=== PATIENT | male | born 1980 | race Caucasian/White ===

== ENCOUNTER → 2020-12-25 02:00 | Outpatient (CLI) | payer BC, SELFPAY ==
[2020-12-25 19:39] LABS: SARS-CoV-2 RNA PCR Negative
== END ==
PROVIDERS: PCP Family Medicine; Visit Provider Internal Medicine Critical Care Medicine
DX: R68.89 Other general symptoms and signs (principal); Z20.822 Contact with and (suspected) exposure to COVID-19
CPT/HCPCS: C9803; U0003; U0005

== ENCOUNTER 2020-12-28 09:00 | Outpatient (CLI) | payer BC, SELFPAY ==
--- NOTE | 2021-01-13 10:22 | WPDSLEEPSTUD ---
Sleep Study Date of Study: 12/28/20 Ordering Provider: Felisha Garza NP Interpreting Physician: Joselyn Wilhelm MD Sleep Study Type: CPAP Titration Height: 1.93 m Weight: 111.13 kg Body Mass Index: 29.8 Neck Circumference (inches): 16 [place]: 5 Reason for Sleep Study ApneaLink 05/28/2020 with AHI 8, desaturation to 85%, and 10 minutes spent below 88% Sleep History Randolph Nunez II is a 40 year old man with constant loud snoring and witnessed apneas at home. There is a family history with both parents snoring and a sister using CPAP. He does not awaken from sleep feeling short of breath and does not awaken with heartburn, belching or coughing. He constantly snores and is constantly loud enough that others complain about it. He occasionally has trouble sleep with a cold. He does not wake up gasping for breath at night normally but his has witnessed this on occasion. he does not sweat excessively at night or notices heart pounding or beating irregularly at night. He does not fall asleep involuntarily or while driving. He does not have loss of muscle tone was strong emotion. He does not have daytime difficulties due to excessive sleepiness. He does not feel paralyzed on waking or falling asleep nor does he have vivid dreamlike scenes upon awakening or falling asleep. He does not feel afraid to go to sleep. He does not have nightmares. He occasionally remembers his dreams, occasionally has racing thoughts. He occasionally feels sad, depressed or anxious. He occasionally has muscular tension. He frequently notices parts of his body jerking. He does not kick at night. He rarely has crawling and aching feelings in his legs or any kind of leg pain at night. He rarely grinds his teeth at night and he rarely has morning jaw pain. He occasionally has bothered by pain during the day. He rarely is awakened by pain at night. He occasionally wakes up feeling stiff in the morning. He rarely wakes up with sore or achy muscles. He occasionally wakes up with spine and neck pain. His normal bedtime is between 9:30 and 10:00 p.m. falling asleep within 15 minutes, waking typically 1-2 times at night to roll over and reposition. He wakes the morning at 5:30 a.m.. His weekend schedule is similar although he may stay awake as late as 10:30 p.m. and wakes in the morning by 7:00 a.m.. He is estimating 5-7 hours of sleep nightly. He does not take naps in the afternoon or evening. A short nap 10 or 15 minutes long might be refreshing. Most of the time he feels good in the morning. He feels better in the morning compared other times of day. He occasionally has memory or concentration problems and occasionally has problems with his job related to excessive daytime sleepiness. Habits: Never smoked tobacco. Caffeine 3 mild exam per day. Alcohol 1-2 beers a week at most. No recreational drugs. [facility] Past Medical History Medical History Anxiety and depression Sleep apnea Surgical History Surgical History Hx of cervical spine surgery (~1996) Status post excision of lipoma left lower back Social History Social History Smoking status: Never smoker Second hand tobacco smoke exposure: No Gender identity (if verbalized by the patient): Male Medications Home Medications Medication Instructions Recorded Confirmed Type cholecalciferol (vitamin D3) 1,250 1,250 mcg PO WEEKLY #14 cap 12/07/20 Rx mcg (50,000 unit) capsule Sleep Procedure This test was performed using the [employer] [place] multiple channel system including EOG, EEG, submental EMG, EKG, nasal and oral airflow using thermistors and nasal pressure sensors, chest and abdominal belts for body position data, and pulse oximetry. Video monitoring was also performed. The study was scored using [facility] guidelines. The p
[2021-01-13 10:25] VITALS: BMI 29.8
== END 2020-12-28 09:01 | disposition home or self-care (01) ==
LOC: ANHCSM 09:01
PROVIDERS: PCP Family Medicine; Visit Provider Nurse Practitioner
DX: G47.30 Sleep apnea, unspecified (principal)
CPT/HCPCS: 95811

== ENCOUNTER 2021-01-15 15:56 | Outpatient (CLI) | payer BC, SELFPAY ==
--- NOTE | ~2021-01-15 | XR_ITS ---
EXAMINATION: XR lumbar spine min 4V DATE: 01/15/2021 16:23 INDICATION: Low back pain. TECHNIQUE: 6 views of lumbar spine were obtained. COMPARISON: None. FINDINGS: There is 4 degrees dextrocurvature of lumbar spine. Vertebral body heights and intervertebr al disc heights are normal. There are endplate osteophytes at L2-L3 and L4-L5. There is mild bilatera l facet joint osteoarthritis at L5-S1. IMPRESSION: 1. Mild lumbar spondylosis. Reviewed, dictated and finalized at location A. IMPRESSION: 1. Mild lumbar spondylosis.
== END 2021-01-15 15:57 | disposition home or self-care (01) ==
LOC: ANHIMG 16:00
PROVIDERS: PCP Family Medicine; Visit Provider Nurse Practitioner
DX: M47.896 Other spondylosis, lumbar region (principal)
CPT/HCPCS: 72110

== ENCOUNTER 2023-01-17 09:37 | Outpatient (CLI) | payer BC, SELFPAY ==
[2023-01-17 14:03] LABS: Basophils Percent Auto 0.5 % (0.2-1.2); Eosinophils Percent Auto 0.6 % (0-4.4); Hemoglobin 15.6 g/dL (14.0-18.0); Immature Granulocyte Absolute 0.01 K/mm3 (0.00-0.031); Immature Granulocyte Percent A 0.2 % (0-0.5); Lymphocytes Absolute Auto 1.18 K/mm3 (0.9-3.2); Lymphocytes Percent Auto 18.8 % (18.3-44.2); Mean Corpuscular HGB Conc 33.2 g/dl (32-36); Mean Corpuscular Hemoglobin 30.8 pg (26-34); Mean Corpuscular Volume 92.7 fl (80-100); Mean Platelet Volume 12.3 fl (7.4-10.4); Monocytes Absolute Auto 0.5 K/mm3 (0.1-0.6); Monocytes Percent Auto 8.6 % (2.6-8.5); Neutrophils Absolute Auto 4.5 K/mm3 (1.3-6.7); Neutrophils Percent Auto 71.3 % (45.5-73.1); Platelet Count Result 172 k/mm3 (150-375); Red Blood Count 5.07 M/mm3 (4.6-6.20); Red Cell Distribution Width 12.8 % (11.5-14.5); White Blood Count 6.3 K/mm3 (4.5-10.0)
[2023-01-17 14:09] LABS: Alanine Aminotransferase 26 U/L (6-50); Albumin Level 4.7 g/dL (3.5-5.1); Alkaline Phosphatase 50 U/L (38-126); Anion Gap 3 mmol/L (8-16); Aspartate Amino Transferase 34 U/L (17-59); Bilirubin,Total 0.8 mg/dL (0.2-1.3); Blood Urea Nitrogen 11 mg/dL (9-20); Calcium 9.7 mg/dL (8.4-10.2); Carbon Dioxide 35 mmol/L (22-30); Chloride 103 mmol/L (98-107); Cholesterol 208 mg/dL (0-200); Estimated Glomerular Filt Rate > 60; Glucose 97 mg/dL (65-110); HDL Direct 52 mg/dL; Potassium 4.4 mmol/L (3.4-5.0); Sodium 141 mmol/L (137-145); Triglycerides 81 mg/dL (<150)
[2023-01-17 14:21] LABS: LDL Cholesterol Direct 124 mg/dL
[2023-01-17 14:34] LABS: Vitamin D 25 Hydroxy 50.2 ng/mL
[2023-01-17 14:39] LABS: Prostate Specific Antigen 1.1 ng/mL (< OR = 4.0)
== END 2023-01-17 09:38 | disposition home or self-care (01) ==
LOC: ANHGOSHLAB 09:38
PROVIDERS: PCP Family Medicine; Visit Provider Nurse Practitioner Family
DX: R55 Syncope and collapse (principal); Z12.5 Encounter for screening for malignant neoplasm of prostate; Z13.220 Encounter for screening for lipoid disorders; E55.9 Vitamin D deficiency, unspecified
CPT/HCPCS: 36415; 80053; 80061; 82306; 84153; 84443; 85025; G0103

== ENCOUNTER 2023-02-04 08:08 | Emergency (ER) | payer BC, SELFPAY ==
--- NOTE | 2023-02-04 08:11 | ED.URI ---
HPI - URI/Sore Throat General Chief Complaint: Upper Respiratory Infection Stated Complaint: Sore Throat,Congestion Time Seen by Provider: 02/04/23 08:11 Source: patient Mode of arrival: ambulatory Limitations: no limitations History of Present Illness HPI Narrative: Patient is a 42-year-old male that presents with 2 weeks of congestion and sore throat. Patient states he thought it was allergies was self medicating with over the counter Sudafed and Tylenol but the symptoms continued to worsen. Denies any headache, fever, chills, ear pain, cough, nausea, vomiting, diarrhea. Has not taken any allergy medicine. Related Data Allergies Allergy/AdvReac Type Severity Reaction Status Date / Time Sulfa (Sulfonamide Allergy Mild nausea Verified 02/04/23 08:32 Antibiotics) vomitting sulfamethoxazole Allergy Mild nausea Verified 02/04/23 08:32 vomitting trimethoprim Allergy Mild nausea and Verified 02/04/23 08:32 vomitting Review of Systems Review of Systems: All systems reviewed & are unremarkable except as noted in HPI and below Constitutional: Constitutional: Denies body ache(s), Denies chills, Denies fatigue, Denies fever(s), Denies headache(s), Denies malaise and Denies weakness Eyes: Eyes: Denies blurry vision, Denies itchy eyes and Denies loss of vision ENT: Denies otalgia, Denies headache(s), Reports nasal congestion, Denies sinus pain and Reports sore throat Cardiovascular: Cardiovascular: Denies chest pain, Denies irregular heart rhythm and Denies dyspnea Respiratory: Respiratory: Denies cough and Denies dyspnea Gastrointestinal: Gastrointestinal: Denies abdominal pain, Denies diarrhea, Denies nausea and Denies vomiting Musculoskeletal: Musculoskeletal: Denies back pain, Denies myalgias and Denies arthralgias Integumentary/Breasts: Skin/Breast: Denies pruritus and Denies rash Neurologic: Denies headache(s), Denies loss of vision and Denies weakness Psychiatric: Psychiatric: Reports no additional psychiatric complaints Endocrine: Endocrine: Denies fatigue Allergic/Immunologic: Allergic/Immunologic: Denies itchy eyes PMFSH Past Medical History Medical History (Updated 02/04/23 @ 08:30 by Fanine Holt, ROXANA) Anxiety and depression Vitamin D deficiency Surgical History Surgical History Hx of cervical spine surgery (~1996) Status post excision of lipoma left lower back Social History Social History (Updated 01/17/23 @ 08:42 by Libia Matos MA) Smoking status: Never smoker Second hand tobacco smoke exposure: No Alcohol intake: current Substance use: never Lack of Transportation: No Lack of Food: Never True Current Housing: I Have Housing Concerned About Future Housing: Decline to Answer Difficulty Paying Gas/Electric Bills: Decline to Answer Difficulty Paying for Meds: Decline to Answer Currently Unemployed: Decline to Answer Education: Decline to Answer Difficulty w/ Childcare or Family Care: Decline to Answer Gender identity (if verbalized by the patient): Male Comments At time of signature, agree with nursing past medical, surgical, social and family history. There is no relevant family history pertinent to the presenting complaint. Exam Const: General: cooperative, healthy appearing, comfortable, no acute distress and well nourished Nutritional Appearance: well nourished Orientation/consciousness: patient oriented x3 Limitations: no limitations HENMT: Head: normal to inspection, normocephalic and atraumatic Ears: hearing grossly normal bilaterally, external ears normal, TM's normal bilaterally, EAC's normal and no periauricular adenopathy Face/Nose/Sinus: Normal external nose present, Abnormal mucous membranes and turbinates present erythematous bilateral and diffuse, normal facial exam, sinuses nontender and face symmetric Face and sinus: normal facial exam, sinuses nontender and face symmetric
[2023-02-04 08:18] VITALS: BP 143/91; PULSE 81; RESP 18; TEMP 36.9; O2SAT 98
== END 2023-02-04 08:36 | disposition home or self-care (01) ==
PROVIDERS: Emergency Provider Nurse Practitioner Family; PCP Nurse Practitioner Family
DX: J01.10 Acute frontal sinusitis, unspecified (principal)
CPT/HCPCS: 99213; G0463

== ENCOUNTER 2023-02-17 12:36 | Outpatient (CLI) | payer BC, SELFPAY ==
--- NOTE | 2023-02-17 12:45 | ECHO_ITS ---
Patient Info Name: Randolph Nunez Age: 42 years : 1980 Gender: Male Ht: 76 in Wt: 237 lbs BSA: 2.42 m2 HR: 80 bpm BP: 149 / 90 mmHg Technical Quality: Good Exam Date: 02/17/2023 12:57 PM Exam Location: [facility] Patient Status: Outpatient Admit Date: 02/17/2023 Staff Ordering Physician: Josie Torres NP Bung Sewer: Susie Dowling RDCS Attending Provider: Josie Torres NP Referring Physician: Brian HARDING; Exam Type: CA echo doppler color flow Study Info Indications I34.1 - Nonrheumatic mitral (valve) prolapse Complete two-dimensional, color flow and Doppler transthoracic echocardiogram is performed. Summary 1. Complete two-dimensional, color flow and Doppler transthoracic echocardiogram is performed. 2. Left ventricular chamber dimension is normal. 3. Left ventricular systolic function is normal, estimated at 60-65%. 4. The left ventricular diastolic function is grade I diastolic dysfunction. 5. E/e' 7 is not elevated. 6. Global longitudinal strain is normal at -17.7%. 7. The mitral valve has mild posterior prolapse. 8. No pulmonary hypertension, estimated pulmonary arterial systolic pressure is 25 mmHg. Left Ventricle E/e' 7 is not elevated. Global longitudinal strain is normal at -17.7%. Left ventricular chamber dimension is normal. Left ventricular systolic function is normal, estimated at 60-65%. The left ventricular diastolic function is grade I diastolic dysfunction. Right Ventricle Right ventricular systolic function is normal and with normal TAPSE 2.4 cm. Right ventricular chamber dimension is normal. Left Atria Left atrial chamber dimension is normal. Right Atria Right atrial chamber dimension is normal. Aortic Valve The aortic valve is trileaflet. There is no aortic valve stenosis. There is no aortic valve regurgitation. Pulmonic Valve There is no pulmonic regurgitation. Mitral Valve The mitral valve has mild posterior prolapse. There is no mitral valve stenosis. There is no mitral valve regurgitation. Tricuspid Valve There is no tricuspid valve regurgitation. No pulmonary hypertension, estimated pulmonary arterial systolic pressure is 25 mmHg. Pericardium/Pleural There is no pericardial effusion. Inferior Vena Cava Normal inferior vena cava with >50% collapse upon inspiration consistent with normal right atrial pressure, 5 mmHg. Aorta The aortic root size at the sinus of Valsalva is normal. Left Ventricular Outflow Tract Name Value Normal LVOT 2D LVOT Diameter 2.0 cm LVOT Doppler LVOT Peak Gradient 5 mmHg LVOT Mean Gradient 3 mmHg LVOT VTI 24 cm LVOT VTI/AV VTI Ratio 0.8 LVOT Stroke Volume 74 ml LVOT CO 5.2 l/min LVOT CI 2.1 l/min/m2 Pulmonic Valve Name Value Normal RVOT Doppler
== END 2023-02-17 12:37 | disposition home or self-care (01) ==
PROVIDERS: PCP Nurse Practitioner Family; Visit Provider Nurse Practitioner Family
DX: I34.1 Nonrheumatic mitral (valve) prolapse (principal)
CPT/HCPCS: 93306

== ENCOUNTER 2023-04-03 08:40 | Outpatient (CLI) | payer BC, SELFPAY ==
--- NOTE | 2023-04-03 08:51 | EST_ITS ---
Patient Info Name: Randolph Nunez Age: 42 years : 1980 Gender: Male Ht: 76 in Wt: 240 lbs BSA: 2.43 m2 HR: 70 bpm BP: 121 / 82 mmHg Heart Rhythm: Sinus Rhythm Exam Date: 04/03/2023 9:01 AM Exam Location: [facility] Stress Patient Status: Outpatient Admit Date: 04/03/2023 Staff Ordering Physician: Jessee Ivory DO Attending Provider: Jessee Ivory DO Exercise Technologist: Carmen Duque CT Exercise Physician: Jessee Ivory DO Exam Type: CA stress test treadmill Study Info Indications R55 - Syncope and collapse A treadmill exercise stress test was performed. Summary 1. 1. Negative [place] exercise stress test for ischemic ST changes by ECG criteria. 2. 2. Good functional capacity, achieving 10 METs of workload. 3. 3. Appropriate HR response to exercise. 4. 4. Appropriate HR recovery at 1 minute post exercise. 5. 5. No imaging with stress testing. 6. 6. Patient informed of the above results. Protocol: [place] Stress ECG Details Stage: REST Duration (min): 1 min : 13 sec Speed (mph): 0.0 Grade (%): 0 HR (bpm): 74 SBP (mmHg): 121 DBP (mmHg): 82 METS: --- Stage: REST Duration (min): 10 min : 16 sec Speed (mph): 0.0 Grade (%): 0 HR (bpm): 78 SBP (mmHg): 121 DBP (mmHg): 82 METS: --- Stage: STAGE 1 Duration (min): 1 min : 0 sec Speed (mph): 1.7 Grade (%): 10 HR (bpm): 92 SBP (mmHg): 121 DBP (mmHg): 82 METS: --- Stage: STAGE 1 Duration (min): 2 min : 0 sec Speed (mph): 1.7 Grade (%): 10 HR (bpm): 101 SBP (mmHg): 121 DBP (mmHg): 82 METS: --- Stage: STAGE 1 Duration (min): 3 min : 0 sec Speed (mph): 1.7 Grade (%): 10 HR (bpm): 103 SBP (mmHg): 141 DBP (mmHg): 56 METS: --- Stage: STAGE 2 Duration (min): 1 min : 0 sec Speed (mph): 2.5 Grade (%): 12 HR (bpm): 114 SBP (mmHg): 141 DBP (mmHg): 56 METS: --- Stage: STAGE 2 Duration (min): 2 min : 0 sec Speed (mph): 2.5 Grade (%): 12 HR (bpm): 121 SBP (mmHg): 157 DBP (mmHg): 60 METS: --- Stage: STAGE 2 Duration (min): 3 min : 0 sec Speed (mph): 2.5 Grade (%): 12 HR (bpm): 124 SBP (mmHg): 157 DBP (mmHg): 60 METS: --- Stage: STAGE 3 Duration (min): 1 min : 0 sec Speed (mph): 3.4 Grade (%): 14 HR (bpm): 139 SBP (mmHg): 151 DBP (mmHg): 84 METS: --- Stage: STAGE 3 Duration (min): 2 min : 0 sec Speed (mph): 3.4 Grade (%): 14 HR (bpm): 151 SBP (mmHg): 151 DBP (mmHg): 84 METS: --- Stage: STAGE 3 Duration (min): 2 min : 59 sec Speed (mph): 3.4 Grade (%): 14 HR (bpm): 157 SBP (mmHg): 163 DBP (mmHg): 54 METS: --- Stage: RECOVERY Duration (min): 1 min : 0 sec Speed (mph): 0.0 Grade (%): 0 HR (bpm): 121 SBP (mmHg): 163 DBP (mmHg): 54 METS: --- Stage: RECOVERY Duration (min): 2 min : 0 sec Speed (mph): 0.0 Grade (%): 0 HR (bpm): 101 SBP (mmHg): 163 DBP (mmHg): 54 METS: -
== END 2023-04-03 08:41 | disposition home or self-care (01) ==
PROVIDERS: PCP Nurse Practitioner Family; Visit Provider Internal Medicine Cardiovascular Disease
DX: R55 Syncope and collapse (principal)
CPT/HCPCS: 93017

== ENCOUNTER 2023-05-13 15:17 | Emergency (ER) | payer BC, SELFPAY ==
[2023-05-13 15:23] VITALS: BP 152/94; PULSE 92; RESP 20; TEMP 36.3; O2SAT 97
--- NOTE | 2023-05-13 16:41 | ED.GENADULT ---
HPI - General Adult General Chief complaint: Extremity Injury, Upper Stated complaint: R ELBOW BURSITIS X MONTHS. Time Seen by Provider: 05/13/23 15:36 Source: patient Mode of arrival: ambulatory Limitations: no limitations History of Present Illness HPI narrative: This is a 42-year-old male who presents to the ED with chief complaint of a right swollen elbow for the past 2 months. Reports it increased in size from yesterday. He is concerned for bursitis. He reports that he has a orthopedic appointment scheduled in a couple of weeks. He is here today because of the increase in drainage. He states it is not overtly painful unless he bumps it on something. Denies any skin changes, numbness, weakness, trauma to the elbow. Denies fevers, chills. Related Data Allergies Allergy/AdvReac Type Severity Reaction Status Date / Time Sulfa (Sulfonamide Allergy Mild nausea Verified 04/07/23 09:39 Antibiotics) vomitting sulfamethoxazole Allergy Mild nausea Verified 04/07/23 09:39 vomitting trimethoprim Allergy Mild nausea and Verified 04/07/23 09:39 vomitting Review of Systems Review of Systems: All systems as dictated in [facility] Past Medical History Medical History Anxiety and depression Vitamin D deficiency Surgical History Surgical History Hx of cervical spine surgery (~1996) Status post excision of lipoma left lower back Social History Social History Smoking status: Never smoker Second hand tobacco smoke exposure: No Alcohol intake: current Substance use: never Lack of Transportation: No Lack of Food: Never True Current Housing: I Have Housing Concerned About Future Housing: Decline to Answer Difficulty Paying Gas/Electric Bills: Decline to Answer Difficulty Paying for Meds: Decline to Answer Currently Unemployed: Decline to Answer Education: Decline to Answer Difficulty w/ Childcare or Family Care: Decline to Answer Gender identity (if verbalized by the patient): Male Exam Narrative: GENERAL: Well-appearing, well-nourished, and in no acute distress. HEAD: Normocephalic, atraumatic. EYES: PERRLA and EOMI. ENT: Nares clear, no rhinorrhea or epistaxis. Mucous membranes moist. Oropharynx without tonsillar hypertrophy exudate or other lesions. NECK: Supple. No adenopathy or masses. CHEST: No respiratory distress. Clear to auscultation. No wheezes rales or rhonchi HEART: Regular rate and rhythm. No murmur heard. Normal peripheral pulses. ABDOMEN: Soft, nontender, nondistended, normal active bowel sounds. MSK: RUE: There is a swollen bursa sac to the right olecranon. Nontender. No overt skin changes. Full range of motion. No warmth. LUE: Benign SKIN: Warm, dry, no rash. NEURO: Alert and oriented x3. No focal deficits. PSYCH: Normal mood and affect. Course Vital Signs Vital signs: Vital Signs Temperature 97.3 F L 05/13/23 15:23 Pulse Rate 92 05/13/23 15:23 Respiratory Rate 20 05/13/23 15:23 Blood Pressure 152/94 H 05/13/23 15:23 Pulse Oximetry 97 05/13/23 15:23 Temperature 97.3 F L 05/13/23 15:23 Pulse Rate 76 05/13/23 17:38 Respiratory Rate 16 05/13/23 17:38 Blood Pressure 120/80 05/13/23 17:38 Pulse Oximetry 98 05/13/23 17:38 Medical Decision Making MDM Narrative Medical decision making narrative: This is a 42-year-old male who presents to the ED with chief complaint of right elbow swelling for the past 2 months. Vitals are normal. Exam reveals swollen olecranon bursa. No skin changes. Very low concern for any infectious process. He has full range of motion. No warmth. Explained to the patient that draining it today would increase his risk of infection in the area which would make things significantly worse. Also would not definitiv
[2023-05-13 17:38] VITALS: BP 120/80; PULSE 76; RESP 16; O2SAT 98
== END 2023-05-13 17:38 | disposition home or self-care (01) ==
PROVIDERS: Emergency Provider Physician Assistant; PCP Nurse Practitioner Family
DX: M70.21 Olecranon bursitis, right elbow (principal); E55.9 Vitamin D deficiency, unspecified
CPT/HCPCS: 99283

== ENCOUNTER 2023-07-15 11:09 | Emergency (ER) | payer BC, SELFPAY ==
--- NOTE | ~2023-07-15 | XR_ITS ---
EXAMINATION: XR foot LT min 3V DATE: 07/15/2023 11:24 INDICATION: Left foot pain TECHNIQUE: Dorsoplantar, lateral, and 2 oblique views of the left foot were obtained. COMPARISON: None. FINDINGS: Bone alignment is normal. There is no fracture. The joint spaces are unremarkable. IMPRESSION: 1. No acute osseous abnormality. Reviewed, dictated and finalized at location F.
--- NOTE | 2023-07-15 11:11 | ED.LOWEXIN ---
HPI - Extremity Injury (Lower) General Stated Complaint: Lt Foot Pain Time Seen by Provider: 07/15/23 11:11 Source: patient Mode of arrival: ambulatory Limitations: no limitations History of Present Illness HPI Narrative: Patient is a 42-year-old male who presents with left foot pain that started last night worsening this morning. Reports pain is sharp. States it is painful to move toe and on palpation. States he had similar pain 10 years ago and was diagnosed with stress fracture. Denies any redness or warmth to area. Denies any obvious injury. Related Data Allergies Allergy/AdvReac Type Severity Reaction Status Date / Time Sulfa (Sulfonamide Allergy Mild nausea Verified 04/07/23 09:39 Antibiotics) vomitting sulfamethoxazole Allergy Mild nausea Verified 04/07/23 09:39 vomitting trimethoprim Allergy Mild nausea and Verified 04/07/23 09:39 vomitting Review of Systems Review of Systems: All systems reviewed & are unremarkable except as noted in HPI and below Constitutional: Constitutional: Denies body ache(s), Denies chills, Denies fatigue, Denies fever(s), Denies headache(s), Denies malaise and Denies weakness Eyes: Eyes: Denies blurry vision, Denies irritation and Denies loss of vision ENT: Denies otalgia, Denies headache(s), Denies nasal discharge, Denies sinus pain and Denies sore throat Cardiovascular: Cardiovascular: Denies chest pain, Denies irregular heart rhythm and Denies dyspnea Respiratory: Respiratory: Denies dyspnea Gastrointestinal: Gastrointestinal: Denies abdominal pain, Denies melena, Denies hematochezia, Denies diarrhea, Denies nausea and Denies vomiting Musculoskeletal: Musculoskeletal: Denies back pain, Denies myalgias and Reports arthralgias Integumentary/Breasts: Skin/Breast: Denies pruritus and Denies rash Neurologic: Denies headache(s), Denies loss of vision and Denies weakness Psychiatric: Psychiatric: Reports no additional psychiatric complaints Endocrine: Endocrine: Denies fatigue PMFSH Past Medical History Medical History Anxiety and depression Vitamin D deficiency Surgical History Surgical History Hx of cervical spine surgery (~1996) Status post excision of lipoma left lower back Social History Social History Smoking status: Never smoker Second hand tobacco smoke exposure: No Alcohol intake: current Substance use: never Lack of Transportation: No Lack of Food: Never True Current Housing: I Have Housing Concerned About Future Housing: Decline to Answer Difficulty Paying Gas/Electric Bills: Decline to Answer Difficulty Paying for Meds: Decline to Answer Currently Unemployed: Decline to Answer Education: Decline to Answer Difficulty w/ Childcare or Family Care: Decline to Answer Gender identity (if verbalized by the patient): Male Comments At time of signature, agree with nursing past medical, surgical, social and family history. There is no relevant family history pertinent to the presenting complaint. Exam Const: General: cooperative, healthy appearing, comfortable, no acute distress and well nourished Nutritional Appearance: well nourished Orientation/consciousness: patient oriented x3 Limitations: no limitations HENMT: Head: normal to inspection, normocephalic and atraumatic Ears: hearing grossly normal bilaterally and external ears normal Face/Nose/Sinus: Normal external nose present, normal facial exam and face symmetric Face and sinus: normal facial exam and face symmetric Mouth: Yes lip normal Eyes: General: appearance normal, both eyes and all related structures Alignment and Position: alignment normal and position normal Periorbital: periorbital findings normal Eyelids: eyelids normal Pupils: Equal, round and reactive pupils present EOM: EOMs intact b
[2023-07-15 11:15] VITALS: BP 145/83; PULSE 63; RESP 18; TEMP 36.6; O2SAT 99
== END 2023-07-15 12:08 | disposition home or self-care (01) ==
PROVIDERS: Emergency Provider Nurse Practitioner Family; PCP Nurse Practitioner Family
DX: M10.9 Gout, unspecified (principal)
CPT/HCPCS: 73630; 99213; G0463

== ENCOUNTER 2024-10-08 18:57 | Emergency (ER) | payer BC, SELFPAY ==
--- OUTSIDE RECORDS SUMMARY | 2024-10-08 18:59 | XMS_ITS | Clinical Summary ---
Author Organization [facility] Address [address] [place] [address] Care Team Providers Care Agricultural Equipment Salesperson Name Role Phone Unavailable Primary Care Provider Unavailabl e Immunizations Immunization Administration Dates Next Due Covid-19, Mrna, Lnp-s, Pf, 30 Mcg/0.3 Ml Dose (P fizer) 10/06/2021 Social History Tobacco Use Types Packs/Day Years Used Date Smoking Tobacco: Never Assessed Sex and Gender Information Value Date Recorded Sex Assigned at Not on file Legal Sex Male 9:56 PM [employer] Gender Identity Not on file Sexual Orientation Not on file Plan of Treatment Health Maintenance Due Date Last Done Comments Hepatitis C Virus (HCV) Screening 1980 TdaP Immunization 1980 Hepatitis B Immunization (1 of 3 - 19+ 3-dose series) 1998 Influenza Immunization (#1) 2024 SARS-COV-2 Immunization ( season) 2024 10/06/2021 Colonoscopy 2024 Colorectal Cancer Screening 2024 Respiratory Syncytial Virus (RSV) Immunization (Adult) (1 - 1-dose 75+ series) 2054 Meningococcal Immunization (ACWY) Aged Out No longer eligible based on patient's age to complete this topic Pneumococcal Immunization Combined Aged Out No longer eligible based on patient's age to complete this topic Rotavirus Immunization Aged Out No lo nger eligible based on patient's age to complete this topic
--- OUTSIDE RECORDS SUMMARY | 2024-10-08 18:59 | XMS_ITS | Clinical Summary ---
Author Organization [facility] Address [address] [place] [address] Care Team Providers Care Remote Sensing Surveyor Name Role Phone Unavailable Primary Care Provider Unavailabl e Source Comments [facility],non-owned Affiliates and Associated Physician Practices is amultiple site organization consisting of ambulatory clinics and hospital sitesin [place], [place], [place] and [place]. This disclosure is being madepursuant to the Care Everywhere program and may not contain all information available regarding this patient. Last updated 18.[facility] [employer] Allergies Active Allergy Reactions Criticality Noted Date Comments Sulfamethoxazole W-Trimethoprim 05/13 Sulf[facility] Drugs 06/08/2017 Immunizations Name Administration Dates Next Due INFLUENZA VACCINE, QUADR. (F LUZONE; FLULAVAL; FLUARIX; AFLURIA QUADRIVALENT; 6MO+), 0.5 ML (IIV4) 08/28/2023 Social History Tobacco Use Types Packs/Day Years Used Date Smoking Tobacco: Never Assessed Sex and Gender Information Value Date Recorded Sex Assigned at Not on file Gender Identity Not on file Sexual Orientation Not on file Plan of Treatment Health Maintenance Due Date Last Done Comments COLOGUARD (AGES 45-75) - COLON CA SCREENING 1979 COLON MONITORING 1979 COLONOSCOPY - COLON CA SCREENING 1979 CT COLONOGRAPHY - COLON CA SCREENING 1979 Colorectal Cancer Screening 1979 FIT - COLON CA SCREENING 1979 FLEX SIG - COLON CA SCREENING 1979 LIPID TESTING 1979 HIV SCREENING 1994 HEPATITIS C SCREENING 08/09/1997 DTAP/TDAP/TD VACCINES (1 - Tdap) 1998 HEPATITIS B VACCINE (1 of 3 - 19+ 3-dose series) 1998 COVID-19 VACCINE ( season) 2024 07/31/2022, 10/06/2021, 11/24/2020, Additional history exists INFLUENZA VACCINE (#1) 2024 3, 07/16/2022, 09/14/2021, Additional history exists DEPRESSION SCREENING 09/11/2024 ZOSTER VACCINE (1 of 2) 2029 HIB VACCINE Aged Out No longer eligi ble based on patient's age to complete this topic HPV VACCINE Aged Out No longer eligi ble based on patient's age to complete this topic MENINGOCOCCAL (Group B) VACCINE Aged Out No longer eligible based on patient's age to complete this topic MENINGOCOCCAL VACCINE Aged Out No madeline marielle eligible based on patient's age to complete this topic PNEUMOCOCCAL VACCINE Aged Out No long er eligible based on patient's age to complete this topic
--- OUTSIDE RECORDS SUMMARY | 2024-10-08 18:59 | XMS_ITS | Referral Summary ---
Author Organization [facility] Address [address] [place] [address] Care Team Providers Care Health Navigator Name Role Phone Unavailable Primary Care Provider Unavailabl e Source Comments [facility],non-owned Affiliates and Associated Physician Practices is amultiple site organization consisting of ambulatory clinics and hospital sitesin [place], [place], [place] and [place]. This disclosure is being madepursuant to the Care Everywhere program and may not contain all information available regarding this patient. Last updated 18.[facility] [employer] Allergies Active Allergy Reactions Criticality Noted Date [...] Orientation Not on file Plan of Treatment Not on file Administered Medications
--- OUTSIDE RECORDS SUMMARY | 2024-10-08 18:59 | XMS_ITS | Patient Health Summary ---
Author Organization [facility] Address [address] [place] [address] Care Team Providers Care Inspector Bullet Slugs Name Role Phone Unavailable Primary Care Provider Unavailabl e Note from [facility],non-owned Affiliates and Associated Physician Practices is amultiple site organization consisting of ambulatory clinics and hospital sitesin [place], [place], [place] and [place]. This disclosure is being madepursuant to the Care Everywhere program and may not contain all information available regarding this patient. Last updated 18.[facility] Allergies * Sulfamethoxazole W-Trimethoprim * Sulfa Drugs Immunizations * INFLUENZA VACCINE, QUADR. (FLUZONE; FLULAVAL; FLUARIX; AFLURIA QUADRIVALENT; 6MO+), 0.5 ML (IIV4)(Given 08/28/2023) Social History Tobacco Use Types Packs/Day Years Used Date Smoking Tobacco: Never Assessed Sex and Gender Information Value Date Recorded Sex Assigned at Not on file Gender Identity Not on file Sexual Orientation Not on file Procedures * SKIN TEST PPD - POINT OF CARE(Performed 06/10/2017) Performed for PPD screening test Results * SKIN TEST PPD - POINT OF CARE (06/10/2017 3:19 PM CDT) PPD 0mm Comment:normal MISCELLANEOUS SAMPLE S / Unknown 06/10/2017 3:19 PM CDT Taya Rea BUTTON BRADDER-ROADSIDE MECHANIC LAB - POINT OF CA RE ORDERABLES
[2024-10-08 19:04] VITALS: BP 153/86; PULSE 84; RESP 18; TEMP 36.2; O2SAT 100
--- NOTE | 2024-10-08 19:11 | ED.EAR ---
HPI - Ear Problem General Chief complaint: Ear Stated complaint: RT Eat Pain Time Seen by Provider: 10/08/24 19:11 Source: patient, RN notes reviewed and old records reviewed Mode of arrival: ambulatory Limitations: no limitations History of Present Illness HPI Narrative: patient with history of frequent ear infections presents with complaints right ear pain that began yesterday, worsening. He denies any injury or trauma. He reports slightly runny nose, but other than that no complaints. He has not been taking any medication for his symptoms. He voices no other concerns or complaints at this time. Related Data Allergies Allergy/AdvReac Type Severity Reaction Status Date / Time Sulfa (Sulfonamide AdvReac Intermediate Nausea and Verified 10/08/24 19:04 Antibiotics) Vomiting sulfamethoxazole AdvReac Intermediate Nausea and Verified 10/08/24 19:04 Vomiting trimethoprim AdvReac Intermediate Nausea and Verified 10/08/24 19:04 Vomiting Review of Systems Review of Systems: All systems reviewed & are unremarkable except as noted in HPI and below Constitutional: Constitutional: Reports no additional constitutional complaints ENT: Reports system reviewed and no additional complaints, except as documented, Reports otalgia and Reports nasal congestion Cardiovascular: Cardiovascular: Reports no additional cardiovascular complaints Respiratory: Respiratory: Reports no additional respiratory complaints Gastrointestinal: Gastrointestinal: Reports no additional gastrointestinal complaints [facility] Past Medical History Medical History Anxiety and depression Vitamin D deficiency Surgical History Surgical History Hx of cervical spine surgery (~1996) Status post excision of lipoma left lower back Social History Social History Smoking status: Never smoker Second hand tobacco smoke exposure: No Alcohol intake: current Substance use: never Do You Feel Safe in your Home?: Yes Lack of Transportation: No Lack of Food: Never True Current Housing: I Have Housing Concerned About Future Housing: No Difficulty Paying Gas/Electric Bills: No Difficulty Paying for Meds: No Currently Unemployed: No Education: Master's Degree or Higher Difficulty w/ Childcare or Family Care: No Gender identity (if verbalized by the patient): Male Comments At the time of my signature, I reviewed and agree with the nursing past medical, surgical, social, and family history. There is no relevant family history pertinent to the patient complaint. Exam Const: General: cooperative, no acute distress, alert and awake Orientation/consciousness: oriented to person, oriented to place and oriented to time HENMT: Head: normal to inspection Ears: TM abnormal erythematous on the right, with loss of landmarks on the right and scarred bilateral Resp: Effort & Inspection: normal respiratory effort and able to speak in complete sentences Auscultation: clear to auscultation bilaterally, no crackles, no rales, no rhonchi and no wheezes Cardio: Palpation: normal PMI Rate: regular rate Rhythm: regular rhythm Heart sounds: S1 normal heart sound present and S2 normal heart sound present Neuro: General: oriented to person, oriented to place and oriented to time Cranial nerves: Yes CN's II-XII intact bilaterally Psych: Appearance: grossly normal Thought process: Normal thought process present Insight: Good insight present (Psych) Judgement: Good judgement present (Psych) Course Course Level of Care: Express Care Visit Vital Signs Vital signs: Vital Signs Temperature 97.2 F L 10/08/24 19:04 Pulse Rate 84 10/08/24 19:04 Respiratory Rate 18 10/08/24 19:04 Blood Pressure 153/86 H 10/08/24 19:04 Pulse Oximetry 100 10/08/24 19:04 Oxygen Delivery Room Air 10/08/24 19:04 Temperature 97.2 F L 10/08/24 19:04 Pulse Rate 84 10/08/24 19:04 Respiratory Rate 18 10/08/24 19:04 Blood Pressure 153/86 H 10/08/24 19:04 Pulse Oximetry 100 10/08/24 19:04 Oxygen Delivery Room Air 10/08/24 19:04 Reviewed Medical Decision Making MDM Narrative Medical decision making narrative: Exam consistent with otitis media. Patient nontoxic appearing, stable for discharge home on p.o. antibiotic therapy. Discharge instructions reviewed with patient, as well as provided in writing per nursing staff. The instructions also include specific and strict return/GO TO THE ER as well as f/u information. All questions have been answered, and the patient deny any further questions with discharge and discharge plan. Some parts of this dictation were generated by voice recognition software and may contain typographical and/or grammatical inaccuracies. Vital Signs Vital Signs: Vital Signs Temperature 97.2 F L 10/08/24 19:04 Pulse Rate 84 10/08/24 19:04 Respiratory Rate 18 10/08/24 19:04 Blood Pressure 153/86 H 10/08/24 19:04 Pulse Oximetry 100 10/08/24 19:04 Oxygen Delivery Room Air 10/08/24 19:04 Temperature 97.2 F L 10/08/24 19:04 Pulse Rate 84 10/08/24 19:04 Respiratory Rate 18 10/08/24 19:04 Blood Pressure 153/86 H 10/08/24 19:04 Pulse Oximetry 100 10/08/24 19:04 Oxygen Delivery Room Air 10/08/24 19:04 reviewed Lab Data Lab results reviewed: Yes I reviewed the patient's lab results. Lab results narrative: reviewed Discharge Plan Discharge Clinical Impression: Elevated blood pressure reading Otitis media Qualifiers: Otitis media type: suppurative Chronicity: acute Laterality: right Recurrence: not specified as recurrent Spontaneous tympanic membrane rupture: without spontaneous rupture Qualified Code(s): H66.001 - Acute suppurative otitis media without spontaneous rupture of ear drum, right ear Patient Disposition: Home, Self-Care Condition: Stable Instructions: Antibiotic Form, Ear Infection (ED) Additional Instructions: take medications as prescribed. Follow with primary care provider. Emergency department for new or worse symptoms Patient Language: Citizen Of [place] Prescriptions: New amoxicillin-pot clavulanate 875-125 mg tablet 1 tablet PO Q12H Qty: 20 0RF Follow-up/Referrals: Damion Houser MD [Primary Care Provider] - 2 Weeks Time of Disposition: 19:22
== END 2024-10-08 19:24 | disposition home or self-care (01) ==
PROVIDERS: Emergency Provider Nurse Practitioner Family; PCP Family Medicine
DX: R03.0 Elevated blood-pressure reading, without diagnosis of hypertension (principal); H66.001 Acute suppurative otitis media without spontaneous rupture of ear drum, right ear
CPT/HCPCS: 99213; G0463

== ENCOUNTER 2024-10-15 17:41 | Emergency (ER) | payer BC, SELFPAY ==
--- OUTSIDE RECORDS SUMMARY | 2024-10-15 17:43 | XMS_ITS | Clinical Summary ---
Author Organization [facility] Address [address] [place] [address] Care Team Providers Care Milling Operator Name Role Phone Unavailable Primary Care Provider Unavailabl e Source Comments [facility],non-owned Affiliates and Associated Physician Practices is amultiple site organization consisting of ambulatory clinics and hospital sitesin [place], [place], [place] and [place]. This disclosure is being madepursuant to the Care Everywhere program and may not contain all information available regarding this patient. Last updated 18.[facility] [employer] Allergies Active Allergy Reactions Criticality Noted Date [...]
--- OUTSIDE RECORDS SUMMARY | 2024-10-15 17:43 | XMS_ITS | Referral Summary ---
Author Organization [facility] Address [address] [place] [address] Care Team Providers Care Co Chairman Name Role Phone Unavailable Primary Care Provider Unavailabl e Source Comments [facility],non-owned Affiliates and Associated Physician Practices is amultiple site organization consisting of ambulatory clinics and hospital sitesin [place], [place], [place] and [place]. This disclosure is being madepursuant to the Care Everywhere program and may not contain all information available regarding this patient. Last updated 18.[facility] [employer] Allergies Active Allergy Reactions Criticality Noted Date [...]
--- OUTSIDE RECORDS SUMMARY | 2024-10-15 17:43 | XMS_ITS | Clinical Summary ---
Author Organization [facility] Address [address] [place] [address] Care Team Providers Care Professor Of Art Name Role Phone Unavailable Primary Care Provider Unavailabl e Immunizations Immunization Administration Dates Next Due Covid-19, Mrna, Lnp-s, Pf, 30 Mcg/0.3 Ml Dose (P fizer) 10/06/2021 Social History Tobacco Use Types Packs/Day Years Used Date Smoking Tobacco: Never Assessed Sex and Gender Information Value Date Recorded Sex Assigned at Not on file Legal Sex Male 9:56 PM SET UP MOLD TECHNICIAN Gender Identity Not on file Sexual Orientation [...]
--- OUTSIDE RECORDS SUMMARY | 2024-10-15 17:43 | XMS_ITS | Patient Health Summary ---
Author Organization [facility] Address [address] [place] [address] Care Team Providers Care Pipe And Test Supervisor Name Role Phone Unavailable Primary Care Provider Unavailabl e Note from [facility],non-owned Affiliates and Associated Physician Practices is amultiple site organization consisting of ambulatory clinics and hospital sitesin [place], [place], [place] and [place]. This disclosure is being madepursuant to the Care Everywhere program and may not contain all information available regarding this patient. Last updated 18.[facility] Allergies * Sulfamethoxazole W-Trimethoprim * Sulfa [...] Unknown 06/10/2017 3:19 PM CDT Taya Rea JUNIOR ACCOUNTANT-RN ADMISSION LAB - POINT OF CA RE ORDERABLES
[2024-10-15 18:23] VITALS: BP 145/91; PULSE 76; RESP 18; TEMP 36.4; O2SAT 100
[2024-10-15 18:39] LABS: EDCOVIDSCREEN Negative (Negative); EDINFLUASCREEN Positive (Negative); EDINFLUBSCREEN Negative (Negative)
--- NOTE | 2024-10-15 18:47 | ED.URI ---
HPI - URI/Sore Throat General Chief Complaint: Animal Bite Stated Complaint: flu like symptoms Time Seen by Provider: 10/15/24 18:47 Source: patient, RN notes reviewed and old records reviewed Mode of arrival: ambulatory Limitations: no limitations Related Data Allergies Allergy/AdvReac Type Severity Reaction Status Date / Time Sulfa (Sulfonamide AdvReac Intermediate Nausea and Verified 10/08/24 19:04 Antibiotics) Vomiting sulfamethoxazole AdvReac Intermediate Nausea and Verified 10/08/24 19:04 Vomiting trimethoprim AdvReac Intermediate Nausea and Verified 10/08/24 19:04 Vomiting Review of Systems Review of Systems: All systems reviewed & are unremarkable except as noted in HPI and below Constitutional: Constitutional: Reports no additional constitutional complaints ENT: Reports system reviewed and no additional complaints, except as documented Cardiovascular: Cardiovascular: Reports no additional cardiovascular complaints Respiratory: Respiratory: Reports no additional respiratory complaints Gastrointestinal: Gastrointestinal: Reports no additional gastrointestinal complaints [facility] Past Medical History Medical History Anxiety and depression Vitamin D deficiency Surgical History Surgical History Hx of cervical spine surgery (~1996) Status post excision of lipoma left lower back Social History Social History Smoking status: Never smoker Second hand tobacco smoke exposure: No Alcohol intake: current Substance use: never Do You Feel Safe in your Home?: Yes Lack of Transportation: No Lack of Food: Never True Current Housing: I Have Housing Concerned About Future Housing: No Difficulty Paying Gas/Electric Bills: No Difficulty Paying for Meds: No Currently Unemployed: No Education: Master's Degree or Higher Difficulty w/ Childcare or Family Care: No Gender identity (if verbalized by the patient): Male Comments At the time of my signature, I reviewed and agree with the nursing past medical, surgical, social, and family history. There is no relevant family history pertinent to the patient complaint. Exam Const: General: cooperative, no acute distress, alert and awake Orientation/consciousness: oriented to person, oriented to place and oriented to time HENMT: Head: normal to inspection Resp: Effort & Inspection: normal respiratory effort and able to speak in complete sentences Auscultation: clear to auscultation bilaterally, no crackles, no rales, no rhonchi and no wheezes Cardio: Palpation: normal PMI Rate: regular rate Rhythm: regular rhythm Heart sounds: S1 normal heart sound present and S2 normal heart sound present Neuro: General: oriented to person, oriented to place and oriented to time Cranial nerves: Yes CN's II-XII intact bilaterally Psych: Appearance: grossly normal Thought process: Normal thought process present Insight: Good insight present (Psych) Judgement: Good judgement present (Psych) Course Course Level of Care: Express Care Visit Vital Signs Vital signs: Vital Signs Temperature 97.6 F 10/15/24 18:23 Pulse Rate 76 10/15/24 18:23 Respiratory Rate 18 10/15/24 18:23 Blood Pressure 145/91 H 10/15/24 18:23 Pulse Oximetry 100 10/15/24 18:23 Oxygen Delivery Room Air 10/15/24 18:23 Temperature 97.6 F 10/15/24 18:23 Pulse Rate 76 10/15/24 18:23 Respiratory Rate 18 10/15/24 18:23 Blood Pressure 145/91 H 10/15/24 18:23 Pulse Oximetry 100 10/15/24 18:23 Oxygen Delivery Room Air 10/15/24 18:23 Reviewed MDM - URI/Sore Throat Lab Data Labs: Lab Results 10/15/24 Range/Units 18:37 POC Influenza A Ag Positive (Negative) POC Influenza B Ag Negative (Negative) POC SARS CoV-2 Ag Negative (Negative) Discharge Plan Discharge Clinical Impression: Influenza Patient Disposition: Home, Self-Care Condition: Stable Instructions: Antibiotic Form Additional Instructions: take medications as prescribed. Follow with primary care provider. Emergency department for any new or worse symptoms Patient Language: Wolof Prescriptions: New oseltamivir [Tamiflu] 75 mg capsule 75 mg PO Q12H 5 Days Qty: 10 0RF prednisone 50 mg tablet 50 mg PO DAILY Qty: 5 0RF No Action amoxicillin-pot clavulanate 875-125 mg tablet 1 tablet PO Q12H Qty: 20 0RF Follow-up/Referrals: Damion Houser MD [Primary Care Provider] - 2 Weeks Stand Alone Forms: Work/School Release IP Time of Disposition: 19:07
== END 2024-10-15 19:18 | disposition home or self-care (01) ==
PROVIDERS: Emergency Provider Nurse Practitioner Family; PCP Family Medicine
DX: J11.1 Influenza due to unidentified influenza virus with other respiratory manifestations (principal); F41.8 Other specified anxiety disorders; E55.9 Vitamin D deficiency, unspecified; Z20.822 Contact with and (suspected) exposure to COVID-19
CPT/HCPCS: 87426; 87804; 99213; G0463

== ENCOUNTER 2024-11-14 07:46 | Outpatient (CLI) | payer BC, SELFPAY ==
--- OUTSIDE RECORDS SUMMARY | 2024-11-14 07:52 | XMS_ITS | Clinical Summary ---
Author Organization [facility] [employer] Address [address] [place] [address] Care Team Providers Care Power Plant Supervisor Name Role Phone Unavailable Primary Care Provider Unavailabl e Source Comments [facility],non-owned Affiliates and Associated Physician Practices is amultiple site organization consisting of ambulatory clinics and hospital sitesin [place], [place], [place] and [place]. This disclosure is being madepursuant to the Care Everywhere program and may not contain all information available regarding this patient. Last updated 18.[facility] Allergies Active Allergy Reactions Criticality Noted Date [...]
--- OUTSIDE RECORDS SUMMARY | 2024-11-14 07:52 | XMS_ITS | Referral Summary ---
Author Organization [facility] [employer] Address [address] [place] [address] Care Team Providers Care Rolled Seat Trimmer Name Role Phone Unavailable Primary Care Provider Unavailabl e Source Comments [facility] [employer],non-owned Affiliates and Associated Physician Practices is amultiple site organization consisting of ambulatory clinics and hospital sitesin [place], [place], [place] and [place]. This disclosure is being madepursuant to the Care Everywhere program and may not contain all information available regarding this patient. Last updated 18.[facility] [employer] Allergies Active Allergy Reactions Criticality Noted Date [...]
--- OUTSIDE RECORDS SUMMARY | 2024-11-14 07:52 | XMS_ITS | Patient Health Summary ---
Author Organization [facility] [employer] Address [address] [place] [address] Care Team Providers Care Home Manager Name Role Phone Unavailable Primary Care Provider Unavailabl e Note from [facility],non-owned Affiliates and Associated Physician Practices is amultiple site organization consisting of ambulatory clinics and hospital sitesin [place], [place], [place] and [place]. This disclosure is being madepursuant to the Care Everywhere program and may not contain all information available regarding this patient. Last updated 18.[facility] Allergies * Sulfamethoxazole W-Trimethoprim * Sulfa Drugs [...] Unknown 06/10/2017 3:19 PM CDT Taya Rea REGIONAL EDUCATION COORDINATOR-SPOUT TENDER LAB - POINT OF CA RE ORDERABLES
--- OUTSIDE RECORDS SUMMARY | 2024-11-14 07:52 | XMS_ITS | Clinical Summary ---
Author Organization [facility] Address [address] [place] [address] Care Team Providers Care Lead Pourer Name Role Phone Unavailable Primary Care Provider Unavailabl e Immunizations Immunization Administration Dates Next Due Covid-19, Mrna, Lnp-s, Pf, 30 Mcg/0.3 Ml Dose (P fizer) 10/06/2021 Social History Tobacco Use Types Packs/Day Years Used Date Smoking Tobacco: Never Assessed Sex and Gender Information Value Date Recorded Sex Assigned at Not on file Legal Sex Male 9:56 PM QUILT STUFFER Gender Identity Not on file Sexual Orientation [...]
[2024-11-14 08:10] LABS: Basophils Percent Auto 0.4 % (0.2-1.2); Eosinophils Absolute Auto 0.1 K/mm3 (0-0.3); Eosinophils Percent Auto 1.9 % (0-4.4); Hematocrit 43.7 % (42.0-52.0); Hemoglobin 14.6 g/dL (14.0-18.0); Immature Granulocyte Absolute 0.01 K/mm3 (0.00-0.031); Immature Granulocyte Percent A 0.2 % (0-0.5); Lymphocytes Absolute Auto 1.28 K/mm3 (0.9-3.2); Lymphocytes Percent Auto 24.4 % (18.3-44.2); Mean Corpuscular HGB Conc 33.4 g/dl (32-36); Mean Corpuscular Hemoglobin 30.5 pg (26-34); Mean Corpuscular Volume 91.2 fl (80-100); Monocytes Absolute Auto 0.6 K/mm3 (0.1-0.6); Monocytes Percent Auto 10.7 % (2.6-8.5); Neutrophils Absolute Auto 3.3 K/mm3 (1.3-6.7); Neutrophils Percent Auto 62.4 % (45.5-73.1); Platelet Count Result 159 k/mm3 (150-375); Red Blood Count 4.79 M/mm3 (4.6-6.20); Red Cell Distribution Width 12.9 % (11.5-14.5); White Blood Count 5.3 K/mm3 (4.5-10.0)
[2024-11-14 08:24] LABS: Alanine Aminotransferase 24 U/L (6-50); Albumin Level 4.2 g/dL (3.5-5.1); Alkaline Phosphatase 52 U/L (38-126); Anion Gap 6 mmol/L (4-12); Aspartate Amino Transferase 25 U/L (17-59); Bilirubin,Total 0.5 mg/dL (0.2-1.3); Blood Urea Nitrogen 14 mg/dL (9-20); Calcium 9.3 mg/dL (8.4-10.2); Carbon Dioxide 29 mmol/L (22-30); Chloride 106 mmol/L (98-107); Cholesterol 224 mg/dL (0-200); Estimated Glomerular Filt Rate > 60; Glucose 109 mg/dL (65-110); HDL Direct 52 mg/dL; Potassium 4.3 mmol/L (3.4-5.0); Sodium 141 mmol/L (137-145); Triglycerides 91 mg/dL (<150)
[2024-11-14 08:30] LABS: Hemoglobin A1C 5.2 % (<5.7)
[2024-11-14 08:35] LABS: LDL Cholesterol Direct 129 mg/dL
[2024-11-14 09:37] LABS: Vitamin D 25 Hydroxy 26.1 ng/mL
== END 2024-11-14 07:47 | disposition home or self-care (01) ==
LOC: ANHLAB 07:48
PROVIDERS: PCP Family Medicine; Visit Provider Family Medicine
DX: R73.9 Hyperglycemia, unspecified (principal); E78.5 Hyperlipidemia, unspecified; Z12.5 Encounter for screening for malignant neoplasm of prostate; Z00.00 Encounter for general adult medical examination without abnormal findings; E55.9 Vitamin D deficiency, unspecified; E53.8 Deficiency of other specified B group vitamins
CPT/HCPCS: 36415; 80053; 80061; 82306; 82607; 83036; 84153; 84443; 85025; G0103

== ENCOUNTER 2024-12-09 02:12 | Day surgery (SDC) | payer BC, SELFPAY ==
[2024-12-04 10:52] VITALS: BMI 29.5
--- OUTSIDE RECORDS SUMMARY | 2024-12-09 02:15 | XMS_ITS | Clinical Summary ---
Author Organization [facility] [employer] Address [address] [place] [address] Care Team Providers Care Mechanical Press Operator Name Role Phone Unavailable Primary Care Provider Unavailabl e Source Comments [facility] [employer],non-owned Affiliates and Associated Physician Practices is amultiple site organization consisting of ambulatory clinics and hospital sitesin [place], [place], [place] and [place]. This disclosure is being madepursuant to the Care Everywhere program and may not contain all information available regarding this patient. Last updated 18.[facility] [employer] Allergies Active Allergy Reactions Criticality Noted Date [...] complete this topic MENINGOCOCCAL (Group B) VACCINE SHARED DECISION-MAKING Aged Out No longer eligible based on patient's age to complete this topic MENINGOCOCCAL GROUPS A/C/Y/W VACCINE Aged Out No longer eligible based on patient's age to complete this topic PNEUMOCOCCAL VACCINE Aged Out No long er eligible based on patient's age to complete this topic
--- OUTSIDE RECORDS SUMMARY | 2024-12-09 02:15 | XMS_ITS | Clinical Summary ---
Author Organization [facility] Address [address] [place] [address] Care Team Providers Care Offal Icer Poultry Name Role Phone Unavailable Primary Care Provider Unavailabl e Immunizations Immunization Administration Dates Next Due Covid-19, Mrna, Lnp-s, Pf, 30 Mcg/0.3 Ml Dose (P fizer) 10/06/2021 Social History Tobacco Use Types Packs/Day Years Used Date Smoking Tobacco: Never Assessed Sex and Gender Information Value Date Recorded Sex Assigned at Not on file Legal Sex Male 9:56 PM CHANNEL MAN Gender Identity Not on file Sexual Orientation [...]
[2024-12-09 08:22] VITALS: BP 167/87; PULSE 77; RESP 18; TEMP 36.3; O2SAT 99; BMI 29.9
[2024-12-09] MEDS: LACTATED RINGERS 1,000 ML 150 ML IV CONT (08:32)
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
[2024-12-09 09:06] VITALS: BP 129/67; PULSE 78; RESP 25; O2SAT 95
[2024-12-09 09:16] VITALS: BP 130/74; PULSE 76; RESP 14; O2SAT 99
[2024-12-09 09:26] VITALS: BP 137/84; PULSE 69; RESP 20; O2SAT 99
== END 2024-12-09 09:32 | disposition home or self-care (01) ==
PROVIDERS: PCP Family Medicine; Referring Provider Family Medicine; Visit Provider Internal Medicine Gastroenterology
PROC: 0DJD8ZZ Inspection of Lower Intestinal Tract, Via Natural or Artificial Opening Endoscopic (ICD-10-PCS; CPT 45378; principal; 2024-12-09 09:00)
DX: Z12.11 Encounter for screening for malignant neoplasm of colon (principal); K57.30 Diverticulosis of large intestine without perforation or abscess without bleeding; E78.5 Hyperlipidemia, unspecified; E55.9 Vitamin D deficiency, unspecified; F41.8 Other specified anxiety disorders; G47.33 Obstructive sleep apnea (adult) (pediatric); G89.29 Other chronic pain; M54.50 Low back pain, unspecified; E66.9 Obesity, unspecified; Z68.30 Body mass index [BMI] 30.0-30.9, adult; Z98.890 Other specified postprocedural states; Z98.1 Arthrodesis status; Z86.79 Personal history of other diseases of the circulatory system
CPT/HCPCS: 45378; J2003; J2704; J7120